=== PATIENT | male | born 1990 | race Caucasian/White ===

== ENCOUNTER 2023-08-30 15:13 | Emergency (ER) | payer BC, MEDICAID ==
[~2023-08-30] VITALS: Ht 180.3 cm; Wt 80.7 kg
[2023-08-30] MEDS ORDERED: HYDR-3980 PO (17:31)
[2023-08-30 17:52] VITALS: BP 120/79; O2SAT 97
== END 2023-08-30 17:53 | disposition home or self-care (01) ==
LOC: ER 15:21
DX: S05.01XA Injury of conjunctiva and corneal abrasion without foreign body, right eye, initial encounter (principal); F07.81 Postconcussional syndrome; Z79.899 Other long term (current) drug therapy; X58.XXXA Exposure to other specified factors, initial encounter; Y93.89 Activity, other specified; Y92.89 Other specified places as the place of occurrence of the external cause; Y99.8 Other external cause status
CPT/HCPCS: 70450; 70486; A4663